=== PATIENT | male | born 1960 | race Caucasian/White ===

== ENCOUNTER 2018-10-25 19:41 | Emergency (ER) | payer SELFPAY ==
--- NOTE | 2018-10-25 19:43 | ER Report ---
History and Physical Time Seen By MD: 19:43 (YUNIOR DICKERSON) HPI/ROS CHIEF COMPLAINT: chest pain HISTORY OF PRESENT ILLNESS: 58 year old male presents to the ED via ambulance with chest pain. Patient reports left arm pain that started yesterday with left arm numbness. Patient reports the arm pain persisted throughout the night, then chest pain with shortness of breath and dizziness started this afternoon. Patient reports he tried to sleep to see if that would help, but it did not. He time he became quite concerned as the pain seemed to be worsening as well as improving. He did get somebody to call EMS for him. On arrival they did do an EKG and brought into the emergency room. In route he received 4 mg of morphine, 324 mg of aspirin and was placed on oxygen. Patient states that currently his pain has not improved. He rates it a 7-8 out of 10. REVIEW OF SYSTEMS: Constitutional: HEENT: Reports dizziness, lightheadedness. Respiratory: No cough. Reports shortness of breath. Cardiovascular: Reports sharp chest pain that started sometime this afternoon. Gastrointestinal: Denies vomiting. Reports nausea. Musculoskeletal: No back pain. Reports left arm pain that started yesterday with left arm numbness. (YUNIOR DICKERSON) Allergies: Coded Allergies: No Known Drug Allergies (Unverified , 10/25/18) Home Meds Reported Medications Glipizide (GLIPIZIDE ER) 10 Mg Tab.er.24, 20 MG PO 10/25/18 Lisinopril (LISINOPRIL) 20 Mg Tablet, 20 MG PO QDAY, TAB 10/25/18 Metformin Hcl (METFORMIN HCL) 1,000 Mg Tablet, 1 TAB PO BID, TAB 10/25/18 Past Medical/Surgical History Patient has past medical history of hypertension, type 2 diabetes. Patient denies any pertinent surgical history. (YUNIOR DICKERSON) Reviewed Nurses Notes: Yes (YUNIOR DICKERSON) Constitutional Vital Sign - Last 24 Hours 10/25/18 10/25/18 10/25/18 10/25/18 19:41 19:43 19:43 19:45 Temp 98.3 Pulse 100 98 Resp 25 B/P (MAP) 137/102 (114) 146/105 146/105 (119) Pulse Ox 98 98 O2 Delivery Nasal Cannula O2 Flow Rate 2.5 10/25/18 10/25/18 10/25/18 10/25/18 19:46 19:51 19:56 20:00 Pulse 96 109 103 Resp 29 28 26 B/P (MAP) 134/94 (107) Pulse Ox 98 93 100 10/25/18 10/25/18 10/25/18 10/25/18 20:01 20:06 20:11 20:15 Pulse 99 101 94 Resp 23 12 14 B/P (MAP) 125/80 (95) Pulse Ox 98 100 99 10/25/18 10/25/18 10/25/18 10/25/18 20:16 20:21 20:26 20:30 Pulse 77 61 63 Resp 28 24 18 B/P (MAP) 92/69 (77) Pulse Ox 96 98 99 10/25/18 10/25/18 10/25/18 10/25/18 20:31 20:34 20:36 20:41 Pulse 69 72 69 Resp 35 20 25 B/P (MAP) 92/63 (73) Pulse Ox 96 98 99 10/25/18 10/25/18 10/25/18 10/25/18 20:45 20:46 20:51 20:56 Pulse 66 ? Resp 23 B/P (MAP) 111/66 (81) Pulse Ox 98 10/25/18 10/25/18 10/25/18 21:01 21:06 21:11 Pulse ? B/P (MAP) ???/??? (1665) Intake and Output 10/25/18 10/25/18 10/26/18 15:00 23:00 07:00 Intake Total 15.9 ml Balance 15.9 ml ([facility]) Physical Exam General Appearance: The patient is alert, has no immediate need for airway protection and no current signs of toxicity. Respiratory: Chest is non tender, lungs are clear to auscultation. Cardiac: regular rate and rhythm Gastrointestinal: Abdomen is soft and non tender, no masses, bowel sounds no rmal. Musculoskeletal: Neck: Neck is supple and non tender. Extremities have full range of motion and are non tender. Skin: No rashes or lesions. DIFFERENTIAL DIAGNOSIS: After history and physical exam differential diagnosis was considered for chest pain including but not limited to myocardial ischemia, pericarditis pulmonary embolus, chest wall pain, pleural inflammation and pulmonary infectious causes. (YUNIOR DICKERSON) Medical Decision Making Data Points Result Diagram: 10/25/18194210/25/181942 Laboratory Hematology Test 10/25/18 19:43 Red Blood Count 5.78 M/uL (4.00-5.60) Mean Corpuscular Volume 83.3 fL (80.0-96.0) Mean Corpuscular Hemoglobin 28.5 pg (26.0-33.0) Mean Corpuscular Hemoglobin Concent 34.2 g/dL (32.0-36.0) Red Cell Distribution Width 14.3 % (11.5-14.5) Mean Platelet Volume 8.7 fL (7.2-11.1) Neutrophils (%) (Auto) 72.7 % (39.4-72.5) Lymphocytes (%) (Auto) 17.0 % (17.6-49.6) Monocytes (%) (Auto) 7.3 % (4.1-12.4) Eosinophils (%) (Auto) 2.2 % (0.4-6.7) Basophils (%) (Auto) 0.8 % (0.3-1.4) Nucleated RBC Relative Count (auto) 0.0 /100WBC Neutrophils # (Auto) 10.1 K/uL (2.0-7.4) Lymphocytes # (Auto) 2.4 K/uL (1.3-3.6) Monocytes # (Auto) 1.0 K/uL (0.3-1.0) Eosinophils # (Auto) 0.3 K/uL (0.0-0.5) Basophils # (Auto) 0.1 K/uL (0.0-0.1) Nucleated RBC Absolute Count (auto) 0.01 K/uL Activated Partial Thromboplast Time 28 seconds (23-35) Sodium Level 137 mmol/L (137-145) Potassium Level 4.5 mmol/L (3.5-5.0) Chloride Level 100 mmol/L (98-107) Carbon Dioxide Level 22 mmol/L (22-30) Blood Urea Nitrogen 15 mg/dl (9-21) Creatinine 1.50 mg/dl (0.66-1.25) Glomerular Filtration Rate Calc 47.7 Random Glucose 235 mg/dl (75-110) Calcium Level 9.7 mg/dl (8.4-10.2) Total Bilirubin 0.9 mg/dl (0.2-1.3) Aspartate Amino Transf (AST/SGOT) 43 U/L (0-35) Alanine Aminotransferase (ALT/SGPT) 73 U/L (0-56) Alkaline Phosphatase 45 U/L (0-126) Troponin I 0.686 ng/ml Total Protein 7.6 g/dl (6.3-8.2) Albumin 4.6 g/dl (3.5-5.0) Chemistry Test 10/25/18 19:43 White Blood Count 13.9 k/uL (4.5-11.0) Red Blood Count 5.78 M/uL (4.00-5.60) Hemoglobin 16.5 g/dL (14.0-18.0) Hematocrit 48.2 % (42.0-52.0) Mean Corpuscular Volume 83.3 fL (80.0-96.0) Mean Corpuscular Hemoglobin 28.5 pg (26.0-33.0) Mean Corpuscular Hemoglobin Concent 34.2 g/dL (32.0-36.0) Red Cell Distribution Width 14.3 % (11.5-14.5) Platelet Count 194 K/uL (150-450) Mean Platelet Volume 8.7 fL (7.2-11.1) Neutrophils (%) (Auto) 72.7 % (39.4-72.5) Lymphocytes (%) (Auto) 17.0 % (17.6-49.6) Monocytes (%) (Auto) 7.3 % (4.1-12.4) Eosinophils (%) (Auto) 2.2 % (0.4-6.7) Basophils (%) (Auto) 0.8 % (0.3-1.4) Nucleated RBC Relative Count (auto) 0.0 /100WBC Neutrophils # (Auto) 10.1 K/uL (2.0-7.4) Lymphocytes # (Auto) 2.4 K/uL (1.3-3.6) Monocytes # (Auto) 1.0 K/uL (0.3-1.0) Eosinophils # (Auto) 0.3 K/uL (0.0-0.5) Basophils # (Auto) 0.1 K/uL (0.0-0.1) Nucleated RBC Absolute Count (auto) 0.01 K/uL Activated Partial Thromboplast Time 28 seconds (23-35) Glomerular Filtration Rate Calc 47.7 Calcium Level 9.7 mg/dl (8.4-10.2) Total Bilirubin 0.9 mg/dl (0.2-1.3) Aspartate Amino Transf (AST/SGOT) 43 U/L (0-35) Alanine Aminotransferase (ALT/SGPT) 73 U/L (0-56) Alkaline Phosphatase 45 U/L (0-126) Troponin I 0.686 ng/ml Total Protein 7.6 g/dl (6.3-8.2) Albumin 4.6 g/dl (3.5-5.0) Coagulation Test 10/25/18 19:43 Activated Partial Thromboplast Time 28 seconds (OZZY MERIDA MD) EKG/Imaging EKG Interpretation 12 lead EKG: Rhythm: STEMI, [place]: normal QRS: normal ST segments: Patient has ST depression in lead one, aVR, aVL, V1, V2, V3. Patient has ST elevation in lead 2, lead 3, lead aVF, and V6. Imaging Examination: CHEST SINGLE AP Comparison: None. History: chest pain Findings: Cardiac and hilar contour size is within normal limits. Mild chronic-appearing interstitial prominence. No consolidation, nodule, or definite evidence of acute peribronchial inflammation. No pneumothorax, edema, or effusion. Visualized bowel gas pattern is unremarkable. Osseous structures are intact. IMPRESSION: No findings of acute cardiopulmonary disease. Report Dictated By: Wilfred Cook MD at 10/25/2018 8:24 PM Report E-Signed By: Wilfred Cook MD at 10/25/2018 8:27 PM (YUNIOR DICKERSON) ED Course/Re-evaluation ED Course Patient was admitted to an exam room, history and physical were obtained. Differential diagnoses were considered. On examination lungs are clear, heart is regular, abdomen is soft nontender. Patient does look obviously uncomfortable. EKG was done which showed ST elevation in leads 2, lead 3 and aVF. The patient has ST depression in aVR, aVL, lead one, V1 and V2. I discussed the case with cardiology in [place] prior to getting the labs back. I did send them a picture of the EKG. Dr. paige, bundle wrapper, agreed that it was a STEMI and recommended doing the vertex, Plavix, heparin, 80 mg of a statin and titrate nitroglycerin for pressure. He accepted the patient to ICU. I discussed the findings with the patient. He agreed for transfer. He agreed to transfer via helicopter. Patient's blood pressure is improved, 134/75. After the nitroglycerin was initiated pressure did get down to 92/69. At that point time we did decrease that to 2.5 mcg/m. Patient did have persistent pain. Repeat EKG was done. That did show persistent ST elevation and ST depression. Decision to Disposition Date: October 25, 2018 Decision to Disposition Time: 20:24 (YUNIOR DICKERSON) Depart Departure Latest Vital Signs Vital Signs Date Time Temp Pulse Resp B/P (MAP) Pulse Ox O2 Delivery O2 Flow Rate FiO2 10/25/18 21:11 ??? 10/25/18 21:01 ???/??? (1665) 10/25/18 20:46 23 98 10/25/18 19:43 2.5 10/25/18 19:43 98.3 Nasal Cannula (OZZY MERIDA MD) Impression: Primary Impression: STEMI (ST elevation myocardial infarction) Condition: Condition Unchanged Disposition: XFER TO [facility]/PA consult with MD: Verbally, Examined Patient MD Consult Note: Assisted with the evaluation and management of this patient along with Yunior and his nurse practitioner student Alma. Examined and oversaw treatment and transfer as per above notes. (OZZY MERIDA MD) Problem Qualifiers Primary Impression: STEMI (ST elevation myocardial infarction) Involved coronary artery: unspecified coronary artery Qualified Codes: I21.3 - ST elevation (STEMI) myocardial infarction of unspecified site YUNIOR DICKERSON October 25, 2018 19:43 OZZY MERIDA MD October 25, 2018 19:49
[2018-10-25] MEDS ORDERED: TENECTEPLASE 50 MG KIT IVP ONE (19:45)
[2018-10-25] MEDS ORDERED: MORPHINE 2 MG/ML SYR IVP ONE (19:45)
[2018-10-25 19:52] LABS: PLATELET COUNT, AUTOMATED 194 K/uL (150-450)
--- NOTE | 2018-10-25 20:02 | EKG ---
[place] [facility] [place] NAME: GREGG NINO : [id number] MR: [id number] V: [id number] EXAM DATE: ORDERING PHYSICIAN: JONY DICKERSON TECHNOLOGIST: TINA Test Reason : CP Blood Pressure : / mmHG Vent. Rate : 096 BPM Atrial Rate : 096 BPM P-R Int : 202 ms QRS Dur : 088 ms QT Int : 360 ms P-R-T Axes : 070 077 097 degrees QTc Int : 454 ms Normal sinus rhythm ST elevation, consider inferior injury or acute infarct ACUTE [place] Abnormal ECG No previous ECGs available Confirmed by Cody Gaspar ([id number]) on 10/26/2018 7:28:47 AM Referred By: Confirmed By:Cody Barnard
[2018-10-25] MEDS ORDERED: CLOPIDOGREL BISULFATE 75MG TAB PO ONE (20:05)
[2018-10-25] MEDS ORDERED: LOVASTATIN 20 MG TAB PO ONE (20:05)
[2018-10-25] MEDS ORDERED: [UNRECOGNIZED DRUG - OTHER] IV ONE (20:05)
[2018-10-25] MEDS ORDERED: NITROGLYCERIN 5 MG/ML VIAL 50 MG in D5W(*) 250 ML BAG 250 ML IVPB ONE (20:05)
[2018-10-25] MEDS ORDERED: HEPARIN (PORC) 5000 UN/ML VIAL IVP ONE (20:05)
[2018-10-25] MEDS ORDERED: NITROGLYCERN* 50 MG/D5W 250 ML 250 ML ONE (20:17)
[2018-10-25] MEDS ORDERED: NITROGLYCERN* 50 MG/D5W 250 ML 250 ML IVPB ONE (20:20)
--- NOTE | 2018-10-25 20:31 | RADIOLOGY IMAGING REPORT ---
FACILITY: [facility] PATIENT NAME: Jose David Hussein : 1960 MR: [id number] V: [id number] EXAM DATE: ORDERING PHYSICIAN: JONY DICKERSON TECHNOLOGIST: Location: [facility] Patient: Jose David Hussein : 1960 Visit/Account:[id number] Date of Sevice: 10/25/2018 Examination: CHEST SINGLE AP Comparison: None. History: chest pain Findings: Cardiac and hilar contour size is within normal limits. Mild chronic-appearing interstitial prominence. No consolidation, nodule, or definite evidence of acu te peribronchial inflammation. No pneumothorax, edema, or effusion. Visualized bowel gas pattern is unremarkable. Osseous structures are intact. IMPRESSION: No findings of acute cardiopulmonary disease. Report Dictated By: Wilfred Cook MD at 10/25/2018 8:24 PM Report E-Signed By: Wilfred Cook MD at 10/25/2018 8:27 PM WSN:[id number]
[2018-10-25] MEDS ORDERED: GLIP-179 PO (20:45)
[2018-10-25] MEDS ORDERED: METF-452 PO (20:45)
[2018-10-25] MEDS ORDERED: LISI20TA29 PO (20:45)
--- NOTE | 2018-10-25 21:12 | EKG ---
FACILITY: [facility] PATIENT NAME: GREGG NINO : [id number] MR: [id number] V: [id number] EXAM DATE: ORDERING PHYSICIAN: JONY DICKERSON TECHNOLOGIST: TINA Galarza Reason : REPEAT EKG Blood Pressure : / mmHG Vent. Rate : 074 BPM Atrial Rate : 074 BPM P-R Int : 196 ms QRS Dur : 088 ms QT Int : 394 ms P-R-T Axes : 062 055 088 degrees QTc Int : 437 ms Normal sinus rhythm Inferior infarct , possibly acute ACUTE [place] Abnormal ECG When compared with ECG of 25-OCT-2018 19:40, ST less elevated in Inferior leads ST no longer depressed in Lateral leads Confirmed by Cody Gaspar ([id number]) on 10/26/2018 7:29:16 AM Referred By: Confirmed By:Cody Barnard
[2018-10-26] MEDS ORDERED: HEPARIN (PORC) 5000 UN/ML VIAL ONE (04:14)
[2018-10-26] MEDS ORDERED: HEPARIN* SOD/D5W 25000 U/500ML 500 ML IV ONE (04:15)
[2018-10-26] MEDS ORDERED: TENECTEPLASE 50 MG KIT IVP ONE (04:16)
[2018-10-26] MEDS ORDERED: CLOPIDOGREL BISULFATE 75MG TAB ONE (04:17)
== END 2018-10-25 21:24 | disposition short-term general hospital (02) ==
LOC: ER 19:45
DX: I21.3 ST elevation (STEMI) myocardial infarction of unspecified site (principal)
CPT/HCPCS: 71045; 84484; 85025; 85730; 93005; 96365; 96366; 96375; 99285; J1644; J2270; J3101; J3490; 82040; 82247; 82310; 82374; 82435; 82565; 82947; 84075; 84132; 84155; 84295; 84450; 84460; 84520; J7060

== ENCOUNTER → 2018-10-25 | Outpatient (CLI) | payer SELFPAY ==
[~2018-10-25] MED LIST: GLIP-179 PO; LISI20TA29 PO; METF-452 PO
== END ==
LOC: AMB 19:17
DX: R07.1 Chest pain on breathing (principal); R00.0 Tachycardia, unspecified; I10 Essential (primary) hypertension
CPT/HCPCS: A0425; A0427